=== PATIENT | female | born 1975 | race Caucasian/White ===

== ENCOUNTER 2018-09-15 07:31 | Day surgery (SDC) | payer OTHER | END 2018-09-15 23:14 | disposition home or self-care (01) | LOC: WOUND 07:31 | DX: I83.023 Varicose veins of left lower extremity with ulcer of ankle (principal); L97.329 Non-pressure chronic ulcer of left ankle with unspecified severity | CPT/HCPCS: G0463 ==

== ENCOUNTER 2018-09-19 01:29 | Day surgery (SDC) | payer OTHER | END 2018-09-19 22:44 | disposition home or self-care (01) | LOC: WOUND 01:29 | DX: I83.023 Varicose veins of left lower extremity with ulcer of ankle (principal); L97.329 Non-pressure chronic ulcer of left ankle with unspecified severity ==

== ENCOUNTER 2018-09-26 07:58 | Day surgery (SDC) | payer OTHER | END 2018-09-26 22:42 | disposition home or self-care (01) | LOC: WOUND 07:58 | DX: I83.023 Varicose veins of left lower extremity with ulcer of ankle (principal); L97.329 Non-pressure chronic ulcer of left ankle with unspecified severity | CPT/HCPCS: 87070; 87077; 87147; 87186; 87205; G0463 ==

== ENCOUNTER 2018-10-03 07:52 | Day surgery (SDC) | payer OTHER, SELFPAY | END 2018-10-03 23:14 | disposition home or self-care (01) | LOC: WOUND 07:52 | DX: L97.822 Non-pressure chronic ulcer of other part of left lower leg with fat layer exposed (principal); I83.023 Varicose veins of left lower extremity with ulcer of ankle; L97.329 Non-pressure chronic ulcer of left ankle with unspecified severity ==

== ENCOUNTER 2018-10-11 08:06 | Day surgery (SDC) | payer OTHER | END 2018-10-11 23:00 | disposition home or self-care (01) | LOC: WOUND 08:06 | DX: L97.822 Non-pressure chronic ulcer of other part of left lower leg with fat layer exposed (principal); I83.023 Varicose veins of left lower extremity with ulcer of ankle; L97.329 Non-pressure chronic ulcer of left ankle with unspecified severity; E72.12 Methylenetetrahydrofolate reductase deficiency; Z68.38 Body mass index [BMI] 38.0-38.9, adult | CPT/HCPCS: 85060; 88305; 88312; G0463 ==

== ENCOUNTER 2018-10-17 07:55 | Day surgery (SDC) | payer OTHER | END 2018-10-17 22:50 | disposition home or self-care (01) | LOC: WOUND 07:55 | DX: I83.023 Varicose veins of left lower extremity with ulcer of ankle (principal); L97.322 Non-pressure chronic ulcer of left ankle with fat layer exposed; E72.12 Methylenetetrahydrofolate reductase deficiency; I87.2 Venous insufficiency (chronic) (peripheral) | CPT/HCPCS: G0463 ==

== ENCOUNTER 2018-10-25 11:50 | Day surgery (SDC) | payer OTHER | END 2018-10-25 22:53 | disposition home or self-care (01) | LOC: WOUND 11:50 | DX: L97.329 Non-pressure chronic ulcer of left ankle with unspecified severity (principal); E72.12 Methylenetetrahydrofolate reductase deficiency; I83.023 Varicose veins of left lower extremity with ulcer of ankle; B95.61 Methicillin susceptible Staphylococcus aureus infection as the cause of diseases classified elsewhere; Z48.00 Encounter for change or removal of nonsurgical wound dressing | CPT/HCPCS: G0463 ==

== ENCOUNTER 2018-10-31 07:58 | Day surgery (SDC) | payer OTHER | END 2018-10-31 22:43 | disposition home or self-care (01) | LOC: WOUND 07:58 | DX: I83.023 Varicose veins of left lower extremity with ulcer of ankle (principal); L97.322 Non-pressure chronic ulcer of left ankle with fat layer exposed; E72.12 Methylenetetrahydrofolate reductase deficiency | CPT/HCPCS: G0463 ==

== ENCOUNTER 2018-11-07 00:16 | Day surgery (SDC) | payer OTHER | END 2018-11-07 22:54 | disposition home or self-care (01) | LOC: WOUND | DX: L97.822 Non-pressure chronic ulcer of other part of left lower leg with fat layer exposed (principal); I83.023 Varicose veins of left lower extremity with ulcer of ankle; L97.329 Non-pressure chronic ulcer of left ankle with unspecified severity; E72.12 Methylenetetrahydrofolate reductase deficiency; I87.2 Venous insufficiency (chronic) (peripheral) ==

== ENCOUNTER 2018-11-14 07:58 | Day surgery (SDC) | payer OTHER | END 2018-11-14 23:02 | disposition home or self-care (01) | LOC: WOUND 07:58 | DX: I83.023 Varicose veins of left lower extremity with ulcer of ankle (principal); L97.329 Non-pressure chronic ulcer of left ankle with unspecified severity; E72.12 Methylenetetrahydrofolate reductase deficiency | CPT/HCPCS: G0463 ==

== ENCOUNTER 2018-11-21 00:21 | Day surgery (SDC) | payer OTHER | END 2018-11-21 23:13 | disposition home or self-care (01) | LOC: WOUND 00:21 | DX: I83.023 Varicose veins of left lower extremity with ulcer of ankle (principal); L97.329 Non-pressure chronic ulcer of left ankle with unspecified severity; E72.12 Methylenetetrahydrofolate reductase deficiency; I87.2 Venous insufficiency (chronic) (peripheral) | CPT/HCPCS: G0463 ==

== ENCOUNTER 2018-11-28 00:11 | Day surgery (SDC) | payer OTHER | END 2018-11-28 22:48 | disposition home or self-care (01) | LOC: WOUND 00:11 | DX: I83.023 Varicose veins of left lower extremity with ulcer of ankle (principal); L97.329 Non-pressure chronic ulcer of left ankle with unspecified severity; E72.12 Methylenetetrahydrofolate reductase deficiency; I87.2 Venous insufficiency (chronic) (peripheral) | CPT/HCPCS: G0463 ==

== ENCOUNTER 2018-12-05 07:59 | Day surgery (SDC) | payer OTHER | END 2018-12-05 22:52 | disposition home or self-care (01) | LOC: WOUND 07:59 | DX: I83.023 Varicose veins of left lower extremity with ulcer of ankle (principal); L97.329 Non-pressure chronic ulcer of left ankle with unspecified severity; E72.12 Methylenetetrahydrofolate reductase deficiency; I87.2 Venous insufficiency (chronic) (peripheral) | CPT/HCPCS: G0463 ==

== ENCOUNTER 2018-12-13 00:06 | Day surgery (SDC) | payer OTHER | END 2018-12-13 23:09 | disposition home or self-care (01) | LOC: WOUND 00:06 | DX: I83.023 Varicose veins of left lower extremity with ulcer of ankle (principal); L97.329 Non-pressure chronic ulcer of left ankle with unspecified severity; E72.12 Methylenetetrahydrofolate reductase deficiency; I87.2 Venous insufficiency (chronic) (peripheral) ==

== ENCOUNTER 2018-12-15 08:00 | Day surgery (SDC) | payer OTHER | END 2018-12-15 22:44 | disposition home or self-care (01) | LOC: WOUND 08:00 | DX: I83.023 Varicose veins of left lower extremity with ulcer of ankle (principal); L97.329 Non-pressure chronic ulcer of left ankle with unspecified severity; E72.12 Methylenetetrahydrofolate reductase deficiency; I87.2 Venous insufficiency (chronic) (peripheral) ==

== ENCOUNTER 2018-12-22 07:52 | Day surgery (SDC) | payer OTHER | END 2018-12-22 23:22 | disposition home or self-care (01) | LOC: WOUND 07:52 | DX: I83.023 Varicose veins of left lower extremity with ulcer of ankle (principal); L97.321 Non-pressure chronic ulcer of left ankle limited to breakdown of skin; E72.12 Methylenetetrahydrofolate reductase deficiency; I87.2 Venous insufficiency (chronic) (peripheral) ==

== ENCOUNTER 2018-12-26 07:48 | Day surgery (SDC) | payer OTHER | END 2018-12-26 22:58 | disposition home or self-care (01) | LOC: WOUND 07:48 | DX: I83.023 Varicose veins of left lower extremity with ulcer of ankle (principal); L97.322 Non-pressure chronic ulcer of left ankle with fat layer exposed; E72.12 Methylenetetrahydrofolate reductase deficiency; I87.2 Venous insufficiency (chronic) (peripheral) ==

== ENCOUNTER 2019-01-02 07:58 | Day surgery (SDC) | payer OTHER | END 2019-01-02 22:55 | disposition home or self-care (01) | LOC: WOUND | DX: L97.821 Non-pressure chronic ulcer of other part of left lower leg limited to breakdown of skin (principal); I83.023 Varicose veins of left lower extremity with ulcer of ankle; L97.329 Non-pressure chronic ulcer of left ankle with unspecified severity; E72.12 Methylenetetrahydrofolate reductase deficiency; I87.2 Venous insufficiency (chronic) (peripheral) ==

== ENCOUNTER 2019-01-09 07:52 | Day surgery (SDC) | payer OTHER | END 2019-01-09 23:08 | disposition home or self-care (01) | LOC: WOUND 07:52 | DX: I83.023 Varicose veins of left lower extremity with ulcer of ankle (principal); L97.321 Non-pressure chronic ulcer of left ankle limited to breakdown of skin; E72.12 Methylenetetrahydrofolate reductase deficiency; I87.2 Venous insufficiency (chronic) (peripheral) ==

== ENCOUNTER 2019-01-16 07:52 | Day surgery (SDC) | payer OTHER | END 2019-01-16 23:07 | disposition home or self-care (01) | LOC: WOUND 07:52 | DX: I83.023 Varicose veins of left lower extremity with ulcer of ankle (principal); L97.321 Non-pressure chronic ulcer of left ankle limited to breakdown of skin; E72.12 Methylenetetrahydrofolate reductase deficiency; I87.2 Venous insufficiency (chronic) (peripheral) ==

== ENCOUNTER 2019-01-23 07:55 | Day surgery (SDC) | payer OTHER | END 2019-01-23 22:52 | disposition home or self-care (01) | LOC: WOUND 07:55 | DX: I83.023 Varicose veins of left lower extremity with ulcer of ankle (principal); L97.321 Non-pressure chronic ulcer of left ankle limited to breakdown of skin; E72.12 Methylenetetrahydrofolate reductase deficiency; I87.2 Venous insufficiency (chronic) (peripheral) ==

== ENCOUNTER 2019-01-30 07:54 | Day surgery (SDC) | payer OTHER | END 2019-01-30 23:23 | disposition home or self-care (01) | LOC: WOUND 07:54 | DX: I83.023 Varicose veins of left lower extremity with ulcer of ankle (principal); L97.321 Non-pressure chronic ulcer of left ankle limited to breakdown of skin; E72.12 Methylenetetrahydrofolate reductase deficiency; I87.2 Venous insufficiency (chronic) (peripheral); Z79.899 Other long term (current) drug therapy; Z79.82 Long term (current) use of aspirin ==

== ENCOUNTER 2019-02-06 07:50 | Day surgery (SDC) | payer OTHER | END 2019-02-06 22:56 | disposition home or self-care (01) | LOC: WOUND 07:50 | DX: I83.023 Varicose veins of left lower extremity with ulcer of ankle (principal); L97.321 Non-pressure chronic ulcer of left ankle limited to breakdown of skin; E72.12 Methylenetetrahydrofolate reductase deficiency; I87.2 Venous insufficiency (chronic) (peripheral) ==

== ENCOUNTER 2019-02-13 07:58 | Day surgery (SDC) | payer OTHER | END 2019-02-13 22:46 | disposition home or self-care (01) | LOC: WOUND 07:58 | DX: I83.023 Varicose veins of left lower extremity with ulcer of ankle (principal); L97.322 Non-pressure chronic ulcer of left ankle with fat layer exposed; I87.2 Venous insufficiency (chronic) (peripheral); I96 Gangrene, not elsewhere classified; E72.12 Methylenetetrahydrofolate reductase deficiency; Z79.899 Other long term (current) drug therapy ==

== ENCOUNTER 2019-02-21 00:27 | Day surgery (SDC) | payer OTHER | END 2019-02-21 23:26 | disposition home or self-care (01) | LOC: WOUND 00:27 | DX: I83.023 Varicose veins of left lower extremity with ulcer of ankle (principal); L97.322 Non-pressure chronic ulcer of left ankle with fat layer exposed; I96 Gangrene, not elsewhere classified; I87.2 Venous insufficiency (chronic) (peripheral); E72.12 Methylenetetrahydrofolate reductase deficiency | CPT/HCPCS: G0463 ==

== ENCOUNTER 2019-02-27 07:50 | Day surgery (SDC) | payer OTHER | END 2019-02-27 22:42 | disposition home or self-care (01) | LOC: WOUND 07:50 | DX: L97.322 Non-pressure chronic ulcer of left ankle with fat layer exposed (principal); E72.12 Methylenetetrahydrofolate reductase deficiency; I83.023 Varicose veins of left lower extremity with ulcer of ankle; I87.2 Venous insufficiency (chronic) (peripheral) ==

== ENCOUNTER 2019-03-06 00:08 | Day surgery (SDC) | payer OTHER | END 2019-03-06 22:55 | disposition home or self-care (01) | LOC: WOUND 00:08 | DX: L97.329 Non-pressure chronic ulcer of left ankle with unspecified severity (principal); E72.12 Methylenetetrahydrofolate reductase deficiency; I87.2 Venous insufficiency (chronic) (peripheral); I83.023 Varicose veins of left lower extremity with ulcer of ankle | CPT/HCPCS: G0463 ==

== ENCOUNTER 2019-03-20 08:04 | Day surgery (SDC) | payer OTHER | END 2019-03-20 23:04 | disposition home or self-care (01) | LOC: WOUND 08:04 | DX: I83.023 Varicose veins of left lower extremity with ulcer of ankle (principal); L97.321 Non-pressure chronic ulcer of left ankle limited to breakdown of skin; I87.2 Venous insufficiency (chronic) (peripheral); E72.12 Methylenetetrahydrofolate reductase deficiency | CPT/HCPCS: G0463 ==